=== PATIENT | male | born 1960 | race African-American/Black ===

== ENCOUNTER 2017-01-02 13:27 | Emergency (ER) | payer MEDICAID ==
[~2017-01-02] VITALS: Ht 182.9 cm; Wt 64.0 kg
[2017-01-02] MEDS ORDERED: FLUO-124 PO (13:50)
[2017-01-02 17:57] LABS: CLARITY URINE CLEAR (CLEAR); COLOR URINE YELLOW (YELLOW); GLUCOSE URINE NEGATIVE (NEGATIVE); KETONES URINE TRACE (NEGATIVE); LEUKOCYTE ESTERASE URINE NEGATIVE (NEGATIVE); NITRITE URINE NEGATIVE (NEGATIVE); OCCULT BLOOD URINE NEGATIVE (NEGATIVE); PROTEIN URINE NEGATIVE (NEGATIVE); SPECIFIC GRAVITY URINE 1.022 (1.005-1.030)
[2017-01-02 18:21] LABS: HEMATOCRIT. 31.4 % (42.0-52.0); HEMOGLOBIN. 10.5 g/dL (14.0-18.0); MEAN CORPUSCULAR HEMOGLOBIN 35.6 pg (28.0-32.0); MEAN CORPUSCULAR HGB CONC 33.5 g/dL (31.0-37.0); MEAN CORPUSCULAR VOLUME 106.3 fL (80.0-94.0); MEAN PLATELET VOLUME 8.3 fl (7.4-10.4); PLATELET 157 x1000/uL (130-400); RED BLOOD CELL COUNT 2.95 mill/uL (4.7-6.1); WHITE BLOOD COUNT 4.4 x1000/uL (4.5-11.0)
[2017-01-02 18:27] LABS: DIFFERENTIAL COMMENT 1
[2017-01-02 18:31] LABS: ALANINE AMINOTRANSFERASE 57 IU/L (13-61); AMYLASE 55 IU/L (25-115); ANION GAP 16; CALCIUM 9.4 mg/dL (8.5-10.1); CARBON DIOXIDE 27 mEq/L (21-32); CHLORIDE 102 mEq/L (98-107); INDEX HEMOLYSI 1 (1-3); INDEX ICTERIC 1 (1-4); INDEX LIPEMIC 1 (1-3); LIPASE 107 IU/L (73-393); UREA NITROGEN BLOOD 12 mg/dL (7-21); eGFR > 60 mL/min (>60)
[2017-01-02 19:27] LABS: PLATELET ESTIMATE NORMAL
[2017-01-02 21:00] VITALS: BP 149/53
== END 2017-01-02 21:15 | disposition home or self-care (01) ==
LOC: ER 15:06
DX: R63.4 Abnormal weight loss (principal); D53.1 Other megaloblastic anemias, not elsewhere classified; F32.9 Major depressive disorder, single episode, unspecified; F10.10 Alcohol abuse, uncomplicated; Y90.9 Presence of alcohol in blood, level not specified; Z68.1 Body mass index [BMI] 19.9 or less, adult
CPT/HCPCS: 36415; 80053; 81003; 82150; 82962; 83615; 83690; 85025; 99284

== ENCOUNTER 2025-06-18 19:06 | Emergency (ER) | payer MEDICARE, MEDICAID ==
[~2025-06-18] VITALS: Ht 177.8 cm; Wt 78.0 kg
[~2025-06-18 19:06] MED LIST: FLUO-413 PO
[2025-06-18 19:08] VITALS: TEMP 36.6; O2SAT 99
[2025-06-18 20:49] VITALS: BP 140/59; PULSE 61; RESP 18; O2SAT 99
== END 2025-06-18 21:01 | disposition home or self-care (01) ==
LOC: ER 19:06
DX: S06.30AA Unspecified focal traumatic brain injury with loss of consciousness status unknown, initial encounter (principal); R40.2412 Glasgow coma scale score 13-15, at arrival to emergency department; W22.03XA Walked into furniture, initial encounter; Y93.89 Activity, other specified; Y92.89 Other specified places as the place of occurrence of the external cause; Y99.8 Other external cause status
CPT/HCPCS: 99284